=== PATIENT | female | born 1955 | race Caucasian/White ===

== ENCOUNTER 2018-04-02 18:33 | Emergency (ER) | payer BC, MEDICARE ==
[~2018-04-02] VITALS: Ht 157.5 cm; Wt 55.4 kg
[2018-04-02 18:49] VITALS: BP 153/81
[2018-04-02] MEDS ORDERED: ceFAZolin 1GM/D5W- ADD-VANTAGE 50 ML IV ONE (19:30)
[2018-04-02] MEDS ORDERED: ketorolac trometh. 30mg/ml inj. IV ONE (19:30)
[2018-04-02] MEDS ORDERED: AMOX-422 PO (19:32)
[2018-04-02] MEDS ORDERED: ketorolac tromethamine 15mg/ml inj. IV ONE (19:35)
== END 2018-04-02 20:58 | disposition home or self-care (01) ==
LOC: ER 18:33
DX: S62.397A Other fracture of fifth metacarpal bone, left hand, initial encounter for closed fracture (principal); S61.452A Open bite of left hand, initial encounter; S61.432A Puncture wound without foreign body of left hand, initial encounter; Z88.5 Allergy status to narcotic agent; Z88.8 Allergy status to other drugs, medicaments and biological substances; W54.0XXA Bitten by dog, initial encounter; Y93.89 Activity, other specified; Y92.89 Other specified places as the place of occurrence of the external cause; Y99.9 Unspecified external cause status
CPT/HCPCS: 29125; 73130; 96365; 96375; 99284; A4565; J0690; J1885